=== PATIENT | female | born 1970 | race Caucasian/White ===

== ENCOUNTER 2020-03-27 14:56 | Outpatient (CLI) | payer BC ==
--- NOTE | 2020-03-27 15:40 | MMO ---
Right Breast MAMMO Unilat Diag DDI RT+CONSTANTINE. CLINICAL HISTORY: Patient is 49 years old and is seen for follow-up at short-interval from prior study. The patient has no family history of breast cancer. The patient has no personal history of cancer. VIEWS: The views performed were: right craniocaudal with tomosynthesis; right mediolateral oblique with tomosynthesis; and right mediolateral with tomosynthesis. FILMS COMPARED: The present examination has been compared to prior imaging studies performed at [facility] on 03/27/2020, and at [facility] on 07/29/2019 and 08/02/2019. This study has been interpreted with the assistance of computer-aided detection. MAMMOGRAM FINDINGS: The breast is heterogeneously dense, which could obscure a lesion on mammography. 9mm septated cyst at 6:00 is stable on US. There are no suspicious masses, suspicious calcifications, or new areas of architectural distortion. IMPRESSION: THERE IS NO MAMMOGRAPHIC EVIDENCE OF MALIGNANCY. A ROUTINE FOLLOW-UP MAMMOGRAM IN 1 YEAR IS RECOMMENDED. THE RESULTS OF THIS EXAM WERE SENT TO THE PATIENT. ACR BI-RADS Category 2 - Benign finding MAMMOGRAPHY NOTE: 1. A negative mammogram report should not delay a biopsy if a dominant of clinically suspicious mass is present. 2. Approximately 10% to 15% of breast cancers are not detected by mammography. 3. Adenosis and dense breasts may obscure an underlying neoplasm. Reported by: NICK URBANO MD Electonically Signed: [id number]
--- NOTE | 2020-03-27 16:12 | ULT ---
RIGHT BREAST ULTRASOUND: 03/27/20 HISTORY: Follow-up mass. COMPARISON: 08/02/19. CORRELATION: Mammogram of today. FINDINGS: There is a 9 mm septated cyst at the 6 o'clock position of the right breast which is essentially stab le since the last exam. IMPRESSION: BIRADS 2: Benign Finding(s) Routine annual screening mammography (for women over age 40).
== END 2020-03-27 14:57 | disposition home or self-care (01) ==
LOC: BICMAMMO 14:56
PROVIDERS: ATTEND Obstetrics & Gynecology
DX: R92.8 Other abnormal and inconclusive findings on diagnostic imaging of breast (principal)
CPT/HCPCS: G0279

== ENCOUNTER 2020-05-04 09:14 | Emergency (ER) | payer BC, OTHER | END 2020-05-04 09:47 | disposition home or self-care (01) | LOC: ERS 09:14 | DX: Z20.828 Contact with and (suspected) exposure to other viral communicable diseases (principal) | CPT/HCPCS: 87635; 99283; U0003 ==